=== PATIENT | male | born 1970 | race Caucasian/White ===

== ENCOUNTER 2017-06-24 10:52 | Emergency (ER) | payer BC ==
--- NOTE | 2017-06-24 11:53 | CPEKG ---
Heart Rate: 66 RR Interval: 909 P-R Interval: 156 QRSD Interval: 102 QT Interval: 412 QTC Interval: 432 P [place]: 10 QRS [place]: -8 T Wave [place]: 0 EKG Severity - ABNORMAL ECG - EKG Impression: SINUS RHYTHM EKG Impression: LEFT VENTRICULAR HYPERTROPHY Electronically Signed By: Malorie Burch 24-Jun-2017 15:45:01
[2017-06-24] MEDS ORDERED: LISINOPRIL 20 MG TAB PO ONE (12:22)
--- NOTE | 2017-06-24 12:27 | EDPHY ---
H & P Time Seen by Provider: 06/24/17 12:15 HPI/ROS: CHIEF COMPLAINT: Elevated blood pressure HISTORY OF PRESENT ILLNESS: 46-year-old male with a history of hypertension presents with elevated blood pressure. He has a history of hypertension and was previously on lisinopril at an unknown dosage. He decided to stop lisinopril several months ago, without the advice of his doctor. 6 weeks ago he started a new job and has been excessively stressed by the new job. He has had intermittent headaches over the past 6 weeks, associated with a feeling of muddled thinking. He took his blood pressure 2 days ago and his BP was quite elevated. Since then he has taken his blood pressure a few times and it has remained elevated. He is requesting treatment for HTN. No chest pain or shortness of breath. No headache now. 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, prior heavy alcohol use Smoking Status: Never smoked Physical Exam: General Appearance: Alert, pleasant Eyes: Pupils equal and round, no conjunctival pallor ENT, Mouth: Mucous membranes moist Neck: Normal inspection Respiratory: Lungs are clear to auscultation Cardiovascular: Regular rate and rhythm Gastrointestinal: Abdomen is soft and nontender Neurological: Alert, oriented x3, cranial nerves II through XII intact, motor 5 /5, sensory intact to light touch, normal gait Skin: Warm and dry Extremities: Nontender, no pedal edema Psychiatric: Mood and affect normal Constitutional: Initial Vital Signs Temperature (C) 36.4 C 06/24/17 11:06 Heart Rate 66 06/24/17 11:06 Respiratory Rate 18 06/24/17 11:06 Blood Pressure 169/128 H 06/24/17 11:06 O2 Sat (%) 95 06/24/17 11:06 O2 Delivery Mode Room Air Allergies/Adverse Reactions: No Known Allergies Allergy (Unverified 06/24/17 11:06) Home Medications: Medication Instructions Recorded Lisinopril 10 mg PO DAILY #30 tablet 06/24/17 Medical Decision Making - Diagnostics EKG Interpretation: EKG interpreted by me reveals NSR, rate 66, LVH. ED Course/Re-evaluation: This patient presents with elevated blood pressure. Blood pressure is 181/107. Lisinopril 10 mg orally given. CBC/Chem 7 unremarkable. No evidence of hypertensive emergency. I do not feel that imaging is indicated in this patient. I feel that he is safe and stable for discharge home. He will keep his appointment with his physician tomorrow. Differential Diagnosis: Differential diagnosis includes though is not limited to had a cranial hemorrhage, acute coronary syndrome, acute renal failure. - Data Points Laboratory Results: Laboratory Results 06/24/17 11:56 06/24/17 11:56 06/24/17 06/24/17 11:56 11:56 WBC 6.74 10^3/uL 10^3/uL (3.80-9.50) RBC 5.66 10^6/uL 10^6/uL (4.40-6.38) Hgb 14.9 g/dL g/dL (13.7-17.5) Hct 45.2 % % (40.0-51.0) MCV 79.9 fL L fL (81.5-99.8) MCH 26.3 pg L pg (27.9-34.1) MCHC 33.0 g/dL g/dL (32.4-36.7) RDW 13.4 % % (11.5-15.2) Plt Count 220 10^3/uL 10^3/uL (150-400) MPV 9.4 fL fL (8.7-11.7) Neut % (Auto) 67.3 % % (39.3-74.2) Lymph % (Auto) 25.4 % % (15.0-45.0) [place] % (Auto) 5.5 % % (4.5-13.0) Eos % (Auto) 1.0 % % (0.6-7.6) Baso % (Auto) 0.4 % % (0.3-1.7) Nucleat RBC Rel Count 0.0 % % (0.0-0.2) Absolute Neuts (auto) 4.53 10^3/uL 10^3/uL (1.70-6.50) Absolute Lymphs (auto) 1.71 10^3/uL 10^3/uL (1.00-3.00) Absolute Monos (auto) 0.37 10^3/uL 10^3/uL (0.30-0.80) Absolute Eos (auto) 0.07 10^3/uL 10^3/uL (0.03-0.40) Absolute Basos (auto) 0.03 10^3/uL 10^3/uL (0.02-0.10) Absolute Nucleated RBC 0.00 10^3/uL 10^3/uL (0-0.01) Immature Gran % 0.4 % % (0.0-1.1) Immature Gran # 0.03 10^3/uL 10^3/uL (0.00-0.10) Sodium 142 mEq/L mEq/L (135-145) Potassium 4.3 mEq/L mEq/L (3.5-5.2) Chloride 104 mEq/L mEq/L (97-110) Carbon Dioxide 25 mEq/l mEq/l (22-31) Anion Gap 13 mEq/L mEq/L (8-16) BUN 9 mg/dL mg/dL (7-23) Creatinine 0.8 mg/dL mg/dL (0.7-1.3) Estimated GFR > 60 Glucose 86 mg/dL mg/dL (70-100) Calcium 10.1 mg/dL mg/dL (8.5-10.4) Medications Given: Discontinued Medications Lisinopril (Zestril) 10 mg PO EDNOW ONE Stop: 06/24/17 12:23 Last Admin: 06/24/17 12:26 Dose: 10 mg Departure - Departure Disposition: Home, Routine, Self-Care Clinical Impression: Hypertension Qualifiers: Hypertension type: essential hypertension Qualified Code(s): I10 - Essential ( primary) hypertension Condition: Good Instructions: Hypertension (ED) Additional Instructions: Keep your appointment with your primary care physician for tomorrow. Take lisinopril as prescribed. Return with any concerns. Referrals: Sydnie Kumar MD [[facility] [place] Primary Care Provider] - As per Instructions Prescriptions: Lisinopril 10 mg PO DAILY #30 tablet
[2017-06-24 12:28] LABS: PLATELET COUNT 220 10^3/uL (150-400)
[2017-06-24 12:35] VITALS: BP 149/103; PULSE 67; RESP 16; TEMP 98.2; O2SAT 97
== END 2017-06-24 12:44 | disposition home or self-care (01) ==
DX: I10 Essential (primary) hypertension (principal)